=== PATIENT | female | born 1995 | race Caucasian/White ===

== ENCOUNTER 2018-12-03 06:36 | Emergency (ER) | payer OTHER ==
[~2018-12-03] VITALS: Ht 175.3 cm; Wt 58.5 kg
[2018-12-03] MEDS ORDERED: ONDANSETRON HCL INJ 2MG/ML 2ML 2 MG/ML VIAL IV STA (07:06)
[2018-12-03] MEDS ORDERED: KETOROLAC TROMETHAMINE 30 MG/ML VIAL IV STA (07:06)
[2018-12-03] MEDS ORDERED: SODIUM CHLORIDE 0.9% 1000ML 1,000 ML IV SCH (07:15)
[2018-12-03] MEDS ORDERED: KETOROLAC TROMETHAMINE 30 MG/ML VIAL ONE (07:25)
--- NOTE | 2018-12-03 07:42 | Diagnostic Imaging Report ---
EXAMINATION: CT of the abdomen and pelvis without contrast. TECHNIQUE: Spiral CT images of the abdomen and pelvis were performed from the lung bases to the lesser trochanters. No intravenous contrast was given per renal stone protocol. Coronal and sagittal reformatted images were obtained. COMPARISON: None. CLINICAL HISTORY:Left flank pain DISCUSSION: ABSENCE OF INTRAVENOUS CONTRAST DECREASES SENSITIVITY FOR DETECTION OF FOCAL LESIONS AND VASCULAR PATHOLOGY. ABDOMEN/PELVIS: LOWER THORAX: Unremarkable. HEPATOBILIARY:No focal hepatic lesions. No biliary ductal dilation. The gallbladder is normal. SPLEEN: No splenomegaly. PANCREAS: No focal masses or ductal dilatation. ADRENALS: No adrenal nodules. KIDNEYS/URETERS: Punctate nonobstructing calculus in the lower pole of the left kidney. No hydronephrosis or solid mass lesion. PELVIC ORGANS/BLADDER: The urinary bladder is collapsed and poorly evaluated. Uterus is anteflexed and appears normal. No adnexal mass. PERITONEUM/RETROPERITONEUM: Trace free pelvic fluid, likely physiologic in a patient of this age. LYMPH NODES: No pelvic sidewall, retroperitoneal, or mesenteric lymphadenopathy. VESSELS: Limited evaluation without intravenous contrast. The abdominal aorta is nonaneurysmal. GI TRACT: The large bowel shows no distention or wall thickening. Gas and fecal material are noted throughout. The appendix is best seen on coronal image 40 through 47 and is normal. No small bowel dilatation to suggest obstruction. BONES AND SOFT TISSUES: No osseous destructive lesions. Multiple pelvic bone islands. No focal soft tissue abnormalities. IMPRESSION: Punctate nonobstructing left renal calculus. No perinephric inflammation. Signed by: Dr. Juan Olivares M.D. on 12/03/2018 7:38 AM
[2018-12-03 08:15] VITALS: BP 122/78
[2018-12-03] MEDS ORDERED: IBUPROFEN400 MG PO (08:20)
[2018-12-03] MEDS ORDERED: TYLENOL WITH C1 EACH PO (08:21)
[2018-12-03] MEDS ORDERED: ONDANSETRON ODT8 MG PO (08:23)
[2018-12-03] MEDS ORDERED: FLOMAX0.4 MG PO (08:24)
== END 2018-12-03 08:35 | disposition home or self-care (01) ==
LOC: FSED 06:36
DX: M54.5 Low back pain (principal); R11.2 Nausea with vomiting, unspecified; N20.0 Calculus of kidney
CPT/HCPCS: 74176; 80053; 81003; 81025; 85025; 99284; J1885; J2405; J7030